=== PATIENT | female | born 2000 | race Caucasian/White ===

== ENCOUNTER 2018-06-21 22:05 | Inpatient (IN) | payer MEDICAID ==
[~2018-06-21] VITALS: Ht 165.1 cm; Wt 57.3 kg
[2018-06-21 23:16] LABS: BASOPHILS 0.7 % (0-2); EOSINOPHILS 4.4 % (0-7); HEMATOCRIT 38.5 % (36.0-48.0); HEMOGLOBIN 13.1 g/dL (12-16); IMMATURE GRANULOCYTES 0.1 % (0-5); LYMPHOCYTES 48.2 % (15-50); MCH 32.2 pg (26.0-34.0); MCV 94.6 fL (80.0-100.0); MEAN PLATELET VOLUME 9.9 fL (7.4-10.4); MONOCYTES 11.3 % (2-11); NEUTROPHILS 35.3 % (40-80); PLATELET COUNT 245 10x3/uL (130-400); RBC 4.07 10x6/uL (4.00-5.40); RDW 12.4 % (11.5-14.5); WBC 7.3 10x3/uL (4.8-10.8)
[2018-06-21 23:45] LABS: ALBUMIN 3.7 g/dL (3.4-5.0); ALKALINE PHOSPHATASE 63 U/L (46-116); ALT (SGPT) 22 U/L (10-68); AMYLASE - SERUM 62 U/L (25-115); BILIRUBIN - TOTAL 0.28 mg/dL (0.2-1.3); CALC OSMOLALITY 277 mosm/kg (275-300); CARBON DIOXIDE 25.6 mmol/L (21.0-32.0); CHLORIDE - SERUM 104 mmol/L (98-107); CREATININE - SERUM 0.9 mg/dL (0.6-1.3); GLUCOSE 83 mg/dL (74-106); LIPASE 618 U/L (73-393); POTASSIUM - SERUM 3.9 mmol/L (3.5-5.1); PROTEIN - SERUM 6.7 g/dL (6.4-8.2); SODIUM 140 mmol/L (136-145); TROPONIN-I < 0.017 ng/mL (0.000-0.060); UREA NITROGEN 13 mg/dL (7-18); eGFR NON AFRICAN AMERICAN 85 mL/min (90-120)
--- NOTE | 2018-06-22 00:25 | NUR ---
URINE SENT TO LAB
[2018-06-22 00:55] LABS: HCG URINE NEGATIVE (NEGATIVE)
[2018-06-22 00:58] LABS: APPEARANCE CLOUDY (CLEAR); BILIRUBIN NEGATIVE (NEGATIVE); COLOR YELLOW (YELLOW); GLUCOSE NEGATIVE (NEGATIVE); KETONE NEGATIVE (NEGATIVE); NITRITE POSITIVE (NEGATIVE); PROTEIN NEGATIVE (NEGATIVE); SPECIFIC GRAVITY 1.005 (1.005-1.020); UROBILINOGEN NORMAL (NORMAL)
[2018-06-22 00:59] LABS: BACTERIA MANY /hpf (NONE SEEN); EPITHELIAL CELLS 0-5 /hpf (0-5); RED CELLS - URINE 0-5 /hpf (0-5); WHITE CELLS - URINE 0-5 /hpf (0-5)
--- NOTE | 2018-06-22 01:17 | NUR ---
PT TO RADIOLOGY.
--- NOTE | 2018-06-22 01:29 | NUR ---
PT RETURNED FROM RADIOLOGY.
--- NOTE | 2018-06-22 02:31 | NUR ---
PT AMBULATED TO RESTROOM INDEPENDENTLY.
--- NOTE | 2018-06-22 04:30 | NUR ---
PT TO ROOM VIA WHEELCHAIR ACCOMPANIED BY ER STAFF AT 0425. A/O X4, L AC WITH NS. NO C/O PAIN OR DISCOMFORT AT THIS TIME. ADMISSION ASSESSMENT AND HISTORY COMPLETED. EDUCATED PT ON DISEASE PROCESS AND WHAT CAUSES PANCREATITIS. EDUCATED PT THAT SHE IS A CLEAR LIQUID DIET. VERBALIZES UNDERSTANDING. NO NEEDS NOTED AT THIS TIME. SR UP X2, BED IN LOWEST POSITION, CL IN REACH.
[2018-06-22 05:03] VITALS: BP 124/68; Ht 165.1 cm; Wt 57.3 kg
[2018-06-22 09:45] VITALS: BP 110/69
[2018-06-22 11:00] VITALS: BP 115/72
[2018-06-22] MEDS ORDERED: LEVAQUIN750 MG PO ×2 (14:41→15:57)
[2018-06-22] MEDS ORDERED: PROBIOTIC1 EAC1 PO ×2 (14:42→15:57)
[2018-06-22 15:00] VITALS: BP 134/87
--- NOTE | 2018-06-22 16:31 | MORECARE ---
CASE MANAGEMENT DISCHARGE SUMMARY PATIENT: ARI LEONARD UNIT: [id number] ADM DATE: 06/22/18 AGE: 18 : [birth year] SEX: F ROOM/BED: D.9071 AUTHOR: SISSY,DOC PHYSICIAN: REFERRING PHYSICIAN: KACEY AGUILA MD DATE OF SERVICE: 06/22/18 Discharge Plan Patient Name: ARI LEONARD Facility: [facility]:[place] : 2000 Planned Disposition: Other Type of Facility Anticipated Discharge Date: 06/22/18 Discharge Date: Expected LOS: 1 Initial Reviewer: LIYA Initial Review Date: 06/22/2018 Generated: 06/22/18 5:31 pm Comments DCP- Discharge Planning Updated by [email or web address]: Jeyson Jacques on 06/22/18 3:[address] Patient Name: ARI LEONARD Admission Status: ER Accout number: [id number] Admission Date: 06-22-2018 : 2000 Admission Diagnosis: Attending: KACEY AGUILA Current LOS: 1 Anticipated DC Date: 06-22-2018 Planned Disposition: Other Type of Facility Primary Insurance: MEDICAID [place] PENDING PLANNED EXTERNAL PROVIDER: [facility] Discharge Planning Comments: CM MET WITH PT IN ROOM TO DISCUSS DISCHARGE PLANNING AND NEEDS. PT REPORTS LIVING AT HOME INDEPENDENTLY WITH HER BOYFRIENDS MOTHER [employer] SYSTEMS ENGINEER AND AT [facility] [place] DURING SCHOOL; PT HAS ROOM ON CAMPUS AT [facility]. PT HAS NO MEDICAL EQUIPMENT AND NO OUTSIDE SERVICES ASSISTING IN THE HOME. CM DISCUSSED AVAILABILITY OF HOME HEALTH, REHAB SERVICES AND MEDICAL EQUIPMENT. PT DENIES DISCHARGE NEEDS, REPORTS HER BOYFRIEND WILL PICK HER UP FOR DISCHARGE HOME BACK TO [facility] TODAY. INTERIOR SPECIALIST NURSE NOTIFIED. Promotion Manager: Jeyson Jacques DCPIA - Discharge Planning Initial Assessment Updated by [email or web address]: Jeyson Jacques on 06/22/18 4:28 pm * Is the patient Alert and Oriented? Yes * How many steps to enter\exit or inside your home? ELEVATOR * PCP NONE - REPORTS [facility] PROVIDES PRIMARY CARE WHILE IN SCHOOL * Pharmacy [facility] [address] * Preadmission Environment Other * Other Environment [facility] * Facility Name [facility] * ADLs Independent * Equipment None * Other Equipment NO MEDICAL EQUIPMENT PROVIDER PREFERENCE * List name and contact numbers for known caregivers / representatives who currently or will assist patient after discharge: NOMI PACHECO, BOYFRIEND, * Verbal permission to speak to the caregivers and representatives has been obtained from the patient. N/A * Community resources currently utilized None * Please name any agencies selected above. NONE * Additional services required to return to the preadmission environment? No * Can the patient safely return to the preadmission environment? Yes * Has this patient been hospitalized within the prior 30 days at any hospital? No Patient Name: ARI LEONARD Page [id number] at 1631 All edits/amendments must be made on the electronic document DICTATION DATE: 06/22/18 1631 INSURANCE RISK MANAGER: FAMILIA 06/22/18 1631 RPT#: [id number] PR DATE: STATUS: ADM IN [facility] [address] [place] [address] END OF REPORT
== END 2018-06-22 18:45 | disposition home or self-care (01) | DRG 689 ==
LOC: D.ER 22:05 → D.EDHOLD 06-22 02:41 → D.M2 06-22 02:41
PROVIDERS: Family Medicine; ADMIT Family Medicine
DX: N39.0 Urinary tract infection, site not specified (principal); K85.90 Acute pancreatitis without necrosis or infection, unspecified; F32.9 Major depressive disorder, single episode, unspecified